=== PATIENT | female | born 1990 | race Caucasian/White ===

== ENCOUNTER 2024-05-06 10:02 | Emergency (ER) | payer BC, OTHER ==
[~2024-05-06] VITALS: Ht 172.7 cm; Wt 74.8 kg
[2024-05-06 14:34] VITALS: PULSE 81; RESP 16; TEMP 98.4; O2SAT 100
== END 2024-05-06 14:34 | disposition home or self-care (01) ==
LOC: FSED 10:15
DX: R05.9 Cough, unspecified (principal); R19.7 Diarrhea, unspecified; R11.0 Nausea
CPT/HCPCS: 71046; 80048; 81025; 82553; 84484; 85025; 93005; 99283